=== PATIENT | female | born 1930 | race Caucasian/White ===

== ENCOUNTER 2017-03-12 07:50 | Emergency (ER) | payer BC, OTHER ==
[~2017-03-12] VITALS: Ht 152.4 cm; Wt 79.0 kg
[2017-03-12 07:51] VITALS: TEMP 36.4; Ht 152.4 cm; Wt 79.0 kg
[2017-03-12] MEDS ORDERED: SODIUM CHLORIDE 0.9% 250ML 250 ML IV STA (08:10)
[2017-03-12] MEDS ORDERED: SODIUM CHLORIDE 0.9% 1000ML 1,000 ML IV STA (08:10)
[2017-03-12] MEDS ORDERED: LISI-729 PO (08:10)
[2017-03-12] MEDS ORDERED: HYDR25TA4 PO (08:13)
--- NOTE | 2017-03-12 08:25 | EMERGENCY ROOM VISIT NOTE ---
History Report prepared by Nicolás: Brittnee Carroll Under the Supervision of: Dr. Shannan Aaron M.D. First contact with patient: 08:01 Chief Complaint: RECTAL BLEEDING Stated Complaint: STOMACH CRAMPS- BLEEDING FROM RECTUM, DIARRHEA Nursing Triage Summary: pt pt reports yesterday at 1330 started having lower bilat abd pain and diarrhea. this am noticed after sitting on toilet for 6 hours with diarrhea she has blood in stool has hx of back problems and lower back is hurting. feels nauseated pt reports getting a sharp pain in right side intermittently History of Present Illness The patient is a 86 year old female who presents to the Emergency Room with complaints of episodes of rectal bleeding beginning yesterday about 12 hours ago. The patient's symptoms started as diarrhea. She then started to have bright red blood. She reports intermittent abdominal pain and nausea beginning about a week ago. She denies any dizziness or weakness. The patient has never had a GI bleed or a blood transfusion before. The patient has a history of intermittent yellow diarrhea. She still has a her gallbladder. The patient has a history of GERD. Source of History: patient Onset: 12 hours ago Position: other (rectal) Quality: other (bleeding) Timing: other (episodes) Associated Symptoms: + nausea, + abdominal pain, + diarrhea, No weakness Review of Systems See HPI for pertinent positives & negatives. A total of 10 systems reviewed and were otherwise negative. Past Medical & Surgical Medical Problems: (1) GERD (gastroesophageal reflux disease) Family History Patient reports no known family medical history. Social History Smoking Status: Never Smoker Housing Status: lives with family Current/Historical Medications Scheduled Hydrochlorothiazide (Hctz), 25 MG PO DAILY Lisinopril (Zestril), 5 MG PO DAILY Metoprolol Tartrate (Lopressor) (Lopressor), 50 MG PO QAM Potassium Chloride (K-Tabs), 10 MEQ PO QAM Allergies Coded Allergies: Penicillins (Unverified Allergy, Unknown, UNKNOWN, 03/12/17) Physical Exam Vital Signs Date Time Temp Pulse Resp B/P (MAP) Pulse Ox O2 Delivery O2 Flow Rate FiO2 03/12/17 11:13 86 20 168/80 94 03/12/17 10:30 74 17 170/66 97 Room Air 03/12/17 09:37 78 16 185/79 97 Room Air 03/12/17 08:58 74 03/12/17 08:51 72 18 185/75 96 Room Air 03/12/17 07:51 36.4 91 18 189/81 97 Room Air Physical Exam Vital signs reviewed. General: Well-appearing female, in no significant distress. HEENT: No scleral icterus, PERRLA, neck supple. Atraumatic. Cardiovascular: Regular rate and rhythm, no extra sounds. Pulmonary: Clear to auscultation bilaterally, normal work of breathing. Abdomen: Soft, nontender, nondistended, positive bowel sounds. Musculoskeletal: Atraumatic, no peripheral edema. Neurologic: Patient awake alert and oriented x 3, full strength in all 4 extremities. Cranial nerves 2 through 12 grossly intact. Skin: Warm, dry, no rash Rectal: Moderately sized external hemorrhoid appears to be inflamed, guaiac positive stool although no gross blood and no significant stool obtained. Medical Decision & Procedures Laboratory Results 03/12/17 08:19 Red Blood Count 4.59, Mean Corpuscular Volume 92.8, Mean Corpuscular Hemoglobin 31.8, Mean Corpuscular Hemoglobin Concent 34.3, Mean Platelet Volume 11.3, Neutrophils (%) (Auto) 67.0, Lymphocytes (%) (Auto) 18.1, Monocytes (%) (Auto) 13.5, Eosinophils (%) (Auto) 1.0, Basophils (%) (Auto) 0.3, Neutrophils # (Auto ) 4.47, Lymphocytes # (Auto) 1.21, Monocytes # (Auto) 0.90, Eosinophils # (Auto ) 0.07, Basophils # (Auto) 0.02 03/12/17 08:19 Test 03/12/17 08:19 White Blood Count 6.68 K/uL (4.8-10.8) Red Blood Count 4.59 M/uL (4.2-5.4) Hemoglobin 14.6 g/dL (12.0-16.0) Hematocrit 42.6 % (37-47) Mean Corpuscular Volume 92.8 fL (80-100) Mean Corpuscular Hemoglobin 31.8 pg (25-34) Mean Corpuscular Hemoglobin Concent 34.3 g/dl (32-36) Platelet Count 154 K/uL (130-400) Mean Platelet Volume 11.3 fL (7.4-10.4) Neutrophils (%) (Auto) 67.0 % Lymphocytes (%) (Auto) 18.1 % Monocytes (%) (Auto) 13.5 % Eosinophils (%) (Auto) 1.0 % Basophils (%) (Auto) 0.3 % Neutrophils # (Auto) 4.47 K/uL (1.4-6.5) Lymphocytes # (Auto) 1.21 K/uL (1.2-3.4) Monocytes # (Auto) 0.90 K/uL (0.11-0.59) Eosinophils # (Auto) 0.07 K/uL (0-0.5) Basophils # (Auto) 0.02 K/uL (0-0.2) RDW Standard Deviation 43.9 fL (36.4-46.3) RDW Coefficient of Variation 13.0 % (11.5-14.5) Immature Granulocyte % (Auto) 0.1 % Immature Granulocyte # (Auto) 0.01 K/uL (0.00-0.02) Prothrombin Time 10.6 SECONDS (9.0-12.0) Prothromb Time International Ratio 1.0 (0.9-1.1) Activated Partial Thromboplast Time 26.2 SECONDS (21.0-31.0) Partial Thromboplastin Ratio 1.0 Anion Gap 9.0 mmol/L (3-11) Est Creatinine Clear Calc Drug Dose 34.1 ml/min Estimated GFR () 51.9 Estimated GFR (Non- 44.8 BUN/Creatinine Ratio 20.0 (10-20) Calcium Level 9.5 mg/dl (8.5-10.1) Magnesium Level 2.2 mg/dl (1.8-2.4) Total Bilirubin 0.8 mg/dl (0.2-1) Direct Bilirubin 0.2 mg/dl (0-0.2) Aspartate Amino Transf (AST/SGOT) 19 U/L (15-37) Alanine Aminotransferase (ALT/SGPT) 20 U/L (12-78) Alkaline Phosphatase 80 U/L (45-117) Total Protein 7.8 gm/dl (6.4-8.2) Albumin 3.9 gm/dl (3.4-5.0) Laboratory results per my review. Medications Administered Medications (Trade) Dose Ordered Sig/Zora Route Start Time Stop Time Status Last Admin Dose Admin Sodium Chloride 250 ml @ 999 mls/hr Q16M STAT IV 03/12/17 08:10 03/12/17 08:25 DC 03/12/17 08:10 999 MLS/HR Sodium Chloride 1,000 ml @ 125 mls/hr Q8H STAT IV 03/12/17 08:10 03/12/17 11:49 DC 03/12/17 08:10 125 MLS/HR ED Course 0809: Past medical records reviewed. The patient was evaluated in room B6. A complete history and physical examination was performed. 0810: Ordered Sodium Chloride 1000 ml @ 125 mls/hr IV, Sodium Chloride 250 ml @ 999 mls/hr IV. 1030: I updated the patient on her test results. 1101: Upon reevaluation, the patient appeared to have improvement of her symptoms. I discussed findings with her. She verbalized agreement of the treatment plan. The patient was discharged home. Medical Decision Differential diagnosis: Etiologies such as diverticulosis, AVM, coagulopathy, colitis, inflammatory bowel disease, malignancy, Gudelia-Martinez tear, esophagitis, peptic ulcer disease , variceal bleed, gastritis, epistaxis, fissure, hemorrhoids, as well as others were entertained. This patient was evaluated and appeared to be in no significant distress. IV access was obtained and laboratory work was drawn. The patient was placed on the hospital monitor. Patient was hydrated with normal saline solution. Physical examination reveals faintly guaiac positive stool however she does have large external hemorrhoids and no gross blood on exam. Patient's H&H remained stable. Patient was observed in the emergency department had no further bleeding. She was informed of the findings. I suspect the patient has a small rectal fissure or bleeding hemorrhoid due to her multiple bouts of diarrhea earlier in the day. Patient was advised to monitor her stools carefully. If she begins to bleed aggressively she should return to the ER for reevaluation. She will follow-up with her PCP this week. Medication Reconcilliation Current Medication List: was personally reviewed by me Blood Pressure Screening Patient's blood pressure: Elevated blood pressure Blood pressure disposition: Elevated BP felt to be situational Impression Primary Impression: Rectal bleeding Scribe Attestation The scribe's documentation has been prepared under my direction and personally reviewed by me in its entirety. I confirm that the note above accurately reflects all work, treatment, procedures, and medical decision making performed by me. Departure Information Dispostion Home / Self-Care Referrals No Doctor, Assigned (PCP) Forms HOME CARE DOCUMENTATION FORM, IMPORTANT VISIT INFORMATION, WORK / SCHOOL INSTRUCTIONS Patient Instructions My [facility] Additional Instructions Diagnosis: Rectal bleeding Maintain a high-fiber diet. Drink plenty of clear fluids. Avoid dairy products for 24-48 hours. Follow-up your primary care physician for reevaluation of the hemorrhoids. Return to the ER immediately for worsening of bleeding/symptoms or any medical concerns.
[2017-03-12 08:44] LABS: BASO % 0.3 %; BASO ABS # 0.02 K/uL (0-0.2); COMPLETE YES; HEMATOCRIT 42.6 % (37-47); IG% 0.1 %; LYMPH % 18.1 %; LYMPH ABS # 1.21 K/uL (1.2-3.4); MEAN CELL VOLUME 92.8 fL (80-100); MEAN CORPUSCULAR HEMOGLOBIN 31.8 pg (25-34); MEAN CORPUSCULAR HGB CONC 34.3 g/dl (32-36); MEAN PLATELET VOLUME 11.3 fL (7.4-10.4); MONO % 13.5 %; PLATELET COUNT 154 K/uL (130-400); RED BLOOD COUNT 4.59 M/uL (4.2-5.4); WHITE BLOOD COUNT 6.68 K/uL (4.8-10.8)
[2017-03-12 08:53] LABS: PROTHROMBIN TIME (PATIENT) 10.6 SECONDS (9.0-12.0)
[2017-03-12 09:02] LABS: CALCIUM 9.5 mg/dl (8.5-10.1); CREATININE 1.12 mg/dl (0.60-1.20); MAGNESIUM 2.2 mg/dl (1.8-2.4); POTASSIUM 3.9 mmol/L (3.5-5.1)
[2017-03-12] MEDS ORDERED: POTA10TA PO (09:30)
[2017-03-12] MEDS ORDERED: METO50TA16 PO (09:30)
[2017-03-12 11:13] VITALS: BP 168/80; PULSE 86; O2SAT 94
== END 2017-03-12 11:20 | disposition home or self-care (01) ==
LOC: C.EDB 07:50
DX: K62.5 Hemorrhage of anus and rectum (principal); R10.9 Unspecified abdominal pain; R19.7 Diarrhea, unspecified; K64.4 Residual hemorrhoidal skin tags; R11.0 Nausea